=== PATIENT | male | born 1985 | race Caucasian/White ===

== ENCOUNTER 2022-08-25 23:57 | Inpatient (IN) | payer MEDICARE, SELFPAY ==
[2022-08-26 02:33] VITALS: BP 122/81; PULSE 93; RESP 16; O2SAT 94
[2022-08-26 02:35] VITALS: BMI 25.9
--- NOTE | 2022-08-26 03:10 | PC.ADMIT ---
Tye is admitted to [facility] on a 12B for safety, and stabilization. Arrived on unit via stretcher from [place] ED at 0130. Admitting DX MDD, with SI, plan to jump off bridge. Covid test negative 08/25/22. Tye is A/O x 3, cooperative with admission assessment, ad-kelly, independent with ADL's, no medical history/issues, sharps/skin check completed. Currently denies SI/HI/AVH. Social stresses include marital discord, restraining order and trauma history of finding his 8 year old son . Tye was assisted to make call to [facility]. No scheduled meds, POC initiated, 15 min unit safety observation per order.
[2022-08-26 08:00] VITALS: BP 103/63; PULSE 71; RESP 18; TEMP 36.6; O2SAT 95
--- NOTE | 2022-08-26 11:29 | P.CONHOSP_ITS ---
History of Present Illness Data of Consult Service Date: 08/26/22 Primary Care Provider: Unknown Physician HPI Reason for consult: Admission H&P Pt is a 36-year-old male with no reported significant PMH who is admitted to Psychiatry for SI with a plan Medical consult for admission H&P. Patient has no acute medical complaints at this time and reports no significant PMH. Denies chest pain/pressure, palpitations. No shortness of breath. Denies fever, chills, nausea, vomiting, diarrhea, abdominal pain. ? Review of Systems Review of Systems: Patient has no acute medical complaints at this time Yes all other systems are reviewed and are negative [facility] Social History Household Members: Spouse Housing: Apartment Do you presently have visiting nurse or other home services: No Patient Tobacco Use Status: Former Tobacco user Tobacco use type: Cigarette Smoked in Last 30 Days: No e-Cigarette/Vaping Use: Never Used Patient Interested in Nicotine Replacement: No Patient Given Instructions on How to Stop Smoking: No Second Hand Smoke Exposure: No Use of substances other than those prescribed or required for medical reasons: No Currently Displaying Signs/Symptoms of Drug Intoxication Withdrawal: No Any prior treatment program specific to substance use: No Have you been hit, kicked, punched, or otherwise hurt by someone within the past year? If so, by whom?: No Do you feel safe in your current relationship?: No Is there a partner from a previous relationship who is making you feel unsafe now?: No Are you made to feel afraid or neglected: Yes Advance Directives: No Advance Directives Information Provided: No Advance Directives on File: No Do you have thoughts of harming others: None Do you have a plan to hurt others: No Plan Recently lost weight without trying: No How much weight loss: Not applicable Eating poorly because of decreased appetite: No Nutrition screen score: 0 Nutrition Risks: No Nutritional Risk Poor oral hygiene: No Meds Allergies Allergy/AdvReac Type Severity Reaction Status Date / Time No Known Allergies Allergy Verified 08/26/22 01:23 Active Medications: Current Medications Acetaminophen (Acetaminophen 325 Mg Tablet) 650 mg PO Q6H PRN PRN Reason: Headache/Pain Mild Scale (1-3) Al Hydroxide/Mg Hydroxide (Magnesium Hydrox/Alum Hydrox 30 Ml Oral.Susp) 30 ml PO Q6H PRN PRN Reason: Heartburn/Nausea Hydroxyzine HCl (Hydroxyzine Hcl 25 Mg Tablet) 25 mg PO Q6H PRN PRN Reason: Anxiety Magnesium Hydroxide (Milk Of Magnesia 30 Ml Oral.Susp) 30 ml PO DAILY PRN PRN Reason: Constipation Nicotine (Nicotine 21 Mg Patch.Td24) 21 mg TRANSDERMA DAILY PRN PRN Reason: smoking cessation Nicotine Polacrilex (Nicotine Polacrilex 2 Mg Gum) 4 mg BUCCAL Q2H PRN PRN Reason: Nicotine Cravings Olanzapine (Olanzapine 5 Mg Tablet) 5 mg PO TID PRN PRN Reason: agitation Trazodone HCl (Trazodone Hcl 50 Mg Tablet) 50 mg PO BEDTIME MRX1 PRN PRN Reason: Insomnia Physical Exam Vital Signs and Narrative: Vital Signs: Last Vital Signs Temp 97.9 F 08/26/22 08:00 Pulse 71 08/26/22 08:00 Resp 18 08/26/22 08:00 BP 103/63 08/26/22 08:00 Pulse Ox 95 08/26/22 08:00 O2 Del Method Room Air 08/26/22 08:00 BMI result Body Mass Index 25.9 General: AOx3, no acute distress Resp: CTA bilaterally CVS: S1, S2, RRR GI: +BS, NT, no distention Skin: No rash Neuro: Cranial nerves II-XII grossly intact bilaterally. Motor grossly intact bilaterally Extremities: No edema Psych: Flat affect Assessment and Plan (1) Routine history and physical examination of adult: Status: Acute Plan Pt is a 36-year-old male with no reported significant PMH who is admitted to Psychiatry for SI with a plan Medical consult for admission H&P. Patient has no acute medical complaints at this time and reports no significant PMH. Mood disorder Plan as per Psychiatry Thank you for allowing us to participate in the care of this patient. Signing off at this time. Please let us know if there are any acute complaints or questions. Time Spent With Patient Time: Total time managing care of this patient today ____ minutes.
--- NOTE | 2022-08-26 17:07 | HO.PSYADMNOT ---
HPI Date of Service: 08/26/22 Chief Complaint: Major Depressive Disorder Sources of Information: patient interviewed, chart reviewed and crisis/core team assessment reviewed Additional Sources of Information: [facility] information HPI Subjective Notes: Dalton Warning and Conditional Voluntary Medical Problems Affecting Mental Status: No Narrative: met with patient. Discussed with Nursing. Reviewed hospitalist evaluation. Reviewed self sure documentation. Noted mention of a restraining order and suicidal thoughts of jumping off a bridge. Patient reports his getting restraining order on him and feels she made things up because their lease ran out at the beginning of this month. Reports least would not be renewed and was unsure why she put in a restraining order but believes it is regarding police in his main not being on any future releases. Reported cannot see his again until 09/01/2022. Reports this is the 1st time there has been a restraining order and therefore not sure of the process. Reports that he stated he was depressed and suicidal so he could be hospitalized. Adamantly denies being depressed psychotic or needing medications etc. . Did endorse having a history of manic episodes and being impulsive with poor sleep, flight of ideas and pressured speech. Unsure if he has had recent symptoms but did describe meeting his 7 months ago who is from [place] and marrying her 1 month later i.e. they have been for 6 months. Reports that he also did this to help her with immigration status. Had an 8-year-old son who 10 years ago and birthday was 08/[birth year] Denies substance issues. Denied being on medications and reports not wanting medications. Eager for discharge as soon as possible. We did discuss legal status. Initially Section 12 And refused to sign CV during nursing assessment, but completed voluntary paperwork with publications writer. Past Psychiatric History: guarded regarding same. Endorse bipolar disorder history. Last inpatient episode was 6-7 years ago. Reports not being on medications in a number of years. Reported not being able to remember any medications. Denied history of suicide attempts or psychosis. Reported 2 other admissions 1 in [facility] for 30 days in 2016 and 1 since then which was much shorter in nature Medical Evaluation Reviewed: Yes [facility] Social History: unclear living situation. Transferred from [place]. 6 months ago after meeting his 1 month prior. Reports this was for immigration reasons as she is from [place]. On disability. 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 Has supportive an older brother and some friends. Had an 8-year-old son who 10 years ago and birthday was 08/20/22 Diagnostics Vital Signs (24Hr): Vital Signs - 24 hr 08/26/22 02:33 08/26/22 08:00 Temperature 97.9 F Pulse Rate 93 71 Respiratory Rate 16 18 Blood Pressure 122/81 103/63 Pulse Oximetry 94 95 Oxygen Delivery Method Room Air Room Air BMI result Body Mass Index 25.9 Meds/Allergies Allergies Allergies Allergy/AdvReac Type Severity Reaction Status Date / Time No Known Allergies Allergy Verified 08/26/22 01:23 Mental Status Exam Mental Status Exam Narrative: pleasant. Fairly presented and fair hygiene. Short answers. Largely euthymic. Eager for discharge. Adamantly denied SI HI agitation psychosis. Insight and judgment okay Assessment & Plan Assessment & Plan (1) Bipolar 1 disorder: Status: Acute Code(s): F31.9 - Bipolar disorder, unspecified Plan reports history of bipolar disorder. Reports stating recent symptoms as a means to gain admission. Understands voluntary process, three-day notice and Dalton warning. Eager for discharge. Understands there will be a period of observation prior to same. Declining medications Patient educated on: diagnosis Informed Consent: understands Reason for continued inpatient stay Substantial Risk for: harm to self Statement Statement: I have reviewed the history and physical and performed a pertinent examination on my patient. No changes have occurred unless specified. If the History and Physical was not performed prior to admission, the Hospitalist's service will be consulted for completing the admission physical. Time Spent With Patient Time: Total time managing care of this patient today ____ minutes.
[2022-08-26 20:20] VITALS: BP 114/66; PULSE 75; RESP 16; TEMP 36.6; O2SAT 97
[2022-08-27 06:00] VITALS: BP 120/74; PULSE 70; RESP 16; TEMP 36.2; O2SAT 98
--- NOTE | 2022-08-27 14:12 | P.PNPSI_ITS ---
Subjective Subjective Date of Service: 08/27/22 Reason For Visit: Major Depressive Disorder Subjective Notes: Conditional Voluntary Medical Problems Affecting Mental Status: No Interim History: met with patient. Discussed with Nursing. Overall continues to report not having any mental health concerns. Reported making statements as he was struggling with a restraining order situation and no where to stay in the [place]. Adamant he does not need inpatient hospitalization and looking forward to meeting with primary team and discussing discharge planning , after observation. Still does not feel a need for any medications being order Side effects from medications: No Attending Groups: Intermittent Review of Systems Acute medical concerns: No Review of Systems Review of Systems Patient has no acute medical complaints at this time Mental Status Exam Mental Status Exam Narrative: pleasant. Fairly presented and fair hygiene. Short answers. Largely eu thymic. Eager for discharge. Adamantly denied SI HI agitation psychosis. Insight and judgment okay Diagnostics Vital Signs (24Hr): Vital Signs - 24 hr 08/26/22 20:20 08/27/22 06:00 Temperature 97.8 F 97.2 F Pulse Rate 75 70 Respiratory Rate 16 16 Blood Pressure 114/66 120/74 Pulse Oximetry 97 98 Oxygen Delivery Method Room Air Room Air BMI result Body Mass Index 25.9 Medications Medications Current Medications Acetaminophen (Acetaminophen 325 Mg Tablet) 650 mg PO Q6H PRN PRN Reason: Headache/Pain Mild Scale (1-3) Al Hydroxide/Mg Hydroxide (Magnesium Hydrox/Alum Hydrox 30 Ml Oral.Susp) 30 ml PO Q6H PRN PRN Reason: Heartburn/Nausea Hydroxyzine HCl (Hydroxyzine Hcl 25 Mg Tablet) 25 mg PO Q6H PRN PRN Reason: Anxiety Magnesium Hydroxide (Milk Of Magnesia 30 Ml Oral.Susp) 30 ml PO DAILY PRN PRN Reason: Constipation Nicotine (Nicotine 21 Mg Patch.Td24) 21 mg TRANSDERMA DAILY PRN PRN Reason: smoking cessation Nicotine Polacrilex (Nicotine Polacrilex 2 Mg Gum) 4 mg BUCCAL Q2H PRN PRN Reason: Nicotine Cravings Olanzapine (Olanzapine 5 Mg Tablet) 5 mg PO TID PRN PRN Reason: agitation Trazodone HCl (Trazodone Hcl 50 Mg Tablet) 50 mg PO BEDTIME MRX1 PRN PRN Reason: Insomnia Allergies Allergies Allergy/AdvReac Type Severity Reaction Status Date / Time No Known Allergies Allergy Verified 04/08/23 01:23 Assessment & Plan Assessment & Plan (1) Bipolar 1 disorder: Status: Acute Code(s): F31.9 - Bipolar disorder, unspecified Plan reports history of bipolar disorder. Reports stating recent symptoms as a means to gain admission. Understands voluntary process, three-day notice and Dalton warning. Eager for discharge. Understands there will be a period of observation prior to same. Declining medications 08/27/2022: No changes to current plan. Reason for contiued inpatient stay Substantial Risk for: harm to self Time Spent With Patient Time: Total time managing care of this patient today ____ minutes.
[2022-08-27 20:55] VITALS: BP 120/73; PULSE 76; RESP 18; TEMP 36.6; O2SAT 99
--- NOTE | 2022-08-28 02:10 | PC.NURSE ---
Tye was noted to be visible in the TV room throughout the evening. he is pleasant and cooperative upon approach he denies all psych symptoms stating I'm fine I don't need to be here no behavioral concerns, somewhat evasive and difficult to engage for 1:1. monitor for safety, continue plan of care
[2022-08-28 08:30] VITALS: BP 123/84; PULSE 72; TEMP 36.6; O2SAT 97
--- NOTE | 2022-08-28 11:44 | PM.PSYDC ---
DS: Providers Provider Date of Service: 08/28/22 Date of admission: 08/25/22 23:57 Primary care physician: Unknown Physician Consults: 08/26/22 01:30 Consult to Hospitalist Routine Comment: Consulting Provider: Hospitalist Reason For Exam: admission physical DS: Diagnosis Discharge Diagnosis (1) Bipolar 1 disorder: Status: Acute Mental Status Exam Mental Status Exam Narrative: pleasant. Fairly presented and fair hygiene. Short answers. Largely euthymic. mood really good. Eager for discharge. Adamantly denied SI HI agitation psychosis. Insight and judgment okay DS: Summary Hospital Course Hospital Course: per 08/26 admission note: met with patient.? Discussed with Nursing.? Reviewed hospitalist evaluation.? Reviewed self sure documentation.? Noted? mention of a restraining order and suicidal thoughts of jumping off a bridge.? Patient reports his getting restraining order on him and feels she made things up because their lease ran out at the beginning of this month.? Reports least would not be renewed and was unsure why she put in a restraining order but believes it is regarding police in his main not being on any future releases.? Reported cannot see his again until 09/01/2022.? Reports this is the 1st time there has been a restraining order and therefore not sure of the process.? Reports that he stated he was depressed and suicidal so he could be hospitalized.? Adamantly denies being depressed psychotic or needing medications etc. .? Did endorse having a history of manic episodes and being impulsive with poor sleep, flight of ideas and pressured speech.? Unsure if he has had recent symptoms but did describe meeting his 7 months ago who is from [place] and marrying her 1 month later i.e. they have been for 6 months.? Reports that he also did this to help her with immigration status.? Had an 8-year-old son who 10 years ago and birthday was 08/[birth year] ?Denies substance issues.? Denied being on medications and reports not wanting medications.? Eager for discharge as soon as possible.? We did discuss legal status.? Initially Section 12? And refused to sign CV during nursing assessment, but completed voluntary paperwork with medical underwriter. Past Psychiatric History:? guarded regarding same.? Endorse bipolar disorder history.? Last inpatient episode was 6-7 years ago.? Reports not being on medications in a number of years.? Reported not being able to remember any medications.? Denied history of suicide attempts or psychosis.? Reported 2 other admissions 1 in [facility] for 30 days in 2016 and 1 since then which was much shorter in nature Medical Evaluation Reviewed: Yes [facility] Social History:? unclear living situation.? Transferred from [place].? 6 months ago after meeting his 1 month prior.? Reports this was for immigration reasons as she is from [place].? On disability.? Worked as a loredo.? Has supportive an older brother and some friends.? Had an 8-year-old son who 10 years ago and birthday was [birth year]: met with patient.? Discussed with Nursing.? Overall continues to report not having any mental health concerns.? Reported making statements as he was struggling with a restraining order situation and no where to stay in the [place].? Adamant he does not need inpatient hospitalization and looking forward to meeting with primary team and discussing discharge planning , after observation.? Still does not feel a need for any medications being order 08/28: feeling very well, asking for discharge today. no complaints or requests, no safety concerns. arranged for family to pick him up this afternoon, declining referrals per MANUEL tovar. Precis: reports history of bipolar disorder.? Reports stating recent symptoms as a means to gain admission.? Understands voluntary process, three-day notice and Dalton warning.? Eager for discharge.? Understands there will be a period of observation prior to same.? Declining medications 08/27/2022: No changes to current plan. 08/28: discharged to self-care, per his request. Time Spent with Patient Time attestation: Total time managing care of this patient today ____ minutes. Time spent: Greater than 30 minutes Discharge Plan Discharge Anticipated Discharge Date/Time: 08/29/22 10:00 Patient Disposition: Home, Self-Care Discharge Diagnosis: Malingering Referrals: Physician,Unknown J [Primary Care Provider] - 1 Week (No PCP 08/28/22) Discharge Medications: Discontinued bupropion HCl 150 mg tablet sustained-release 12 hr 150 mg PO BID oxycodone 5 mg tablet See Rx Instructions .ROUTE .COMPLEX Patient Comments: patient reports not taking any meds. Prescriber nor pharmacy was disclosed during admission. Rx Instructions: Doctor's Order Discharge Orders: Discharge Order (Routine); Ordered 08/28/22 Ordered By: Howie Domingo Diet: Advance to usual diet Activity on Discharge: As tolerated Stand Alone Forms: Patient Portal Discharge page, Community Support Care Plan Goals: remain safe and stable in the outpatient treatment setting Health Concerns: none Plan of Treatment: establish outpatient therapy relationship, engage in psychotherapy. restart medications as indicated. Assessment: not at imminent risk of harm to self or others
--- NOTE | 2022-08-28 14:43 | PC.NURSE ---
Reviewed discharge instructions, and belongings with pt. Patient verbalized understanding, no concerns reported. Belongings accounted for. Patient denies SI/HI, denies AH/VH. Patient states he is ready for discharge, and has arranged transportation.
--- NOTE | 2022-08-28 17:15 | PC.NURSE ---
Late entry 1615: Patient's ride home arrived, discharged to care of friend.
== END 2022-08-28 16:15 | disposition home or self-care (01) | DRG 885 ==
PROVIDERS: Admitting Provider Psychiatry & Neurology Psychiatry; Visit Provider Psychiatry & Neurology Psychiatry
DX: F31.9 Bipolar disorder, unspecified (principal); R45.851 Suicidal ideations; Z87.891 Personal history of nicotine dependence